=== PATIENT | male | born 1990 | race African-American/Black ===

== ENCOUNTER 2019-02-17 18:17 | Emergency (ER) | payer OTHER ==
[~2019-02-17] VITALS: Ht 175.3 cm; Wt 59.0 kg
[2019-02-17] MEDS ORDERED: HALOPERIDOL 2 MG2 M1 PO (18:30)
[2019-02-17] MEDS ORDERED: IBU400 MG PO (18:30)
[2019-02-17] MEDS ORDERED: TRAZODONE HCL100 MG PO (18:31)
[2019-02-17] MEDS ORDERED: MULTI VITAMIN1 EACH PO (18:31)
[2019-02-17] MEDS ORDERED: ZOLOFT50 M1 PO (18:31)
[2019-02-17] MEDS ORDERED: MIRALAX119 GM PO (18:32)
[2019-02-17 20:00] VITALS: BP 132/85
== END 2019-02-17 20:00 | disposition home or self-care (01) ==
LOC: ER 18:17
DX: K14.9 Disease of tongue, unspecified (principal); F31.9 Bipolar disorder, unspecified; F17.210 Nicotine dependence, cigarettes, uncomplicated; Z86.2 Personal history of diseases of the blood and blood-forming organs and certain disorders involving the immune mechanism; Z88.2 Allergy status to sulfonamides